=== PATIENT | male | born 1970 | race Caucasian/White ===

== ENCOUNTER 2025-01-24 11:49 | Emergency (ER) | payer OTHER ==
[~2025-01-24] VITALS: Ht 182.9 cm; Wt 141.1 kg
[2025-01-24 12:34] VITALS: TEMP 98.1
[2025-01-24 13:30] LABS: CLARITY,URINE CLEAR (CLEAR); COLOR,URINE YELLOW (YELLOW); LEUKOCYTE ESTERASE ,URINE TRACE (NEGATIVE); NITRITE,URINE NEGATIVE (NEGATIVE); PH,URINE 6 (5 - 7); PROTEIN,URINE DIPSTICK 1+ (NEGATIVE)
[2025-01-24 13:31] LABS: BILIRUBIN,URINE NEGATIVE (NEGATIVE); GLUCOSE, URINE >=1000 (NEGATIVE); KETONES,URINE NEGATIVE (NEGATIVE); URINE UROBILINOGEN 0.2 mg/dL (0.2 - 1)
[2025-01-24 13:42] LABS: BACTERIA,URINE FEW /HPF; EPITHELIAL CELLS,URINE FEW /LPF; RBC,URINE >50 /HPF (0-5)
[2025-01-24] MEDS: SODIUM CHLORIDE 0.9% 1000ML 1,000 ML IV STA (17:06)
[2025-01-24 17:08] LABS: BASOPHILS # (AUTO) 0.1 (0.0-0.1); BASOPHILS % 0.7 % (0.0-1.0); EOSINOPHILS # (AUTO) 0.3 (0.0-0.4); EOSINOPHILS % 2.2 % (0.0-6.0); HEMATOCRIT 49.1 % (38.2-49.6); HEMOGLOBIN 16.2 g/dL (14.0-18.0); LYMPHOCYTES # (AUTO) 2.7 (1.0-3.2); LYMPHOCYTES % 22.5 % (18.0-39.1); MEAN CORPUSCULAR HEMOGLOBIN 29.1 pg (28-32); MEAN CORPUSCULAR VOLUME 88.2 fL (81-99); MONOCYTES # (AUTO) 0.8 (0.2-0.8); MONOCYTES % 6.9 % (4.4-11.3); NEUTROPHILS # (AUTO) 8.1 (2.1-6.9); NEUTROPHILS % 67.4 % (38.7-80.0); PLATELET COUNT 239 x10e3/uL (140-360); RED BLOOD COUNT 5.57 x10e6/uL (4.3-5.7); RED CELL DISTRIBUTION WIDTH 14.2 % (11.7-14.4); WHITE BLOOD COUNT 11.93 x10e3/uL (4.8-10.8)
[2025-01-24] MEDS: KETOROLAC TROMETHAMINE 30 MG/ML VIAL IV STA (17:08)
[2025-01-24 17:30] LABS: ALBUMIN 4.1 g/dL (3.5-5.0); ALBUMIN/GLOBULIN RATIO 1.3 (0.8-2.0); ANION GAP 16.4 mmol/L (8-16); BILIRUBIN,TOTAL 0.6 mg/dL (0.2-1.2); CALCIUM 8.9 mg/dL (8.4-10.2); CREATININE, SERUM 0.93 mg/dL (0.72-1.25); POTASSIUM 4.4 mmol/L (3.5-5.1); TOTAL PROTEIN 7.3 g/dL (6.5-8.1)
[2025-01-24] MEDS: HYDRALAZINE HCL 20 MG/ML VIAL IV STA ×2 (17:53→19:17)
[2025-01-24 17:58] VITALS: PULSE 72; RESP 16
[2025-01-24] MEDS ORDERED: CELEBREX200 MG PO (19:06)
[2025-01-24] MEDS ORDERED: MEDROL4 M2 PO (19:06)
[2025-01-24] MEDS ORDERED: METHOCARBAMOL750 MG PO (19:06)
[2025-01-24] MEDS: DEXAMETHASONE SOD PHOS 10 MG/1 ML VIAL IV ONE (19:17)
[2025-01-24 19:23] VITALS: BP 163/99; PULSE 69; RESP 18; O2SAT 100
== END 2025-01-24 19:24 | disposition home or self-care (01) ==
LOC: ER 16:35
DX: M54.42 Lumbago with sciatica, left side (principal); N39.0 Urinary tract infection, site not specified; I10 Essential (primary) hypertension; E78.5 Hyperlipidemia, unspecified; Z98.84 Bariatric surgery status
CPT/HCPCS: 36415; 74176; 80053; 81001; 85025; 99284; J0360; J0696; J1100; J1885; J7030